=== PATIENT | male | born 1955 | race Caucasian/White ===

== ENCOUNTER 2021-07-23 13:32 | Outpatient (CLI) | payer MEDICARE, OTHER | END 2021-07-23 13:33 | disposition home or self-care (01) | LOC: COV 13:32 | PROVIDERS: ATTEND Internal Medicine Gastroenterology | DX: Z01.812 Encounter for preprocedural laboratory examination (principal); K51.30 Ulcerative (chronic) rectosigmoiditis without complications; Z20.822 Contact with and (suspected) exposure to COVID-19 ==

== ENCOUNTER 2023-02-11 15:27 | Outpatient (CLI) | payer MEDICARE, OTHER | END 2023-02-11 15:28 | disposition home or self-care (01) | LOC: DI 15:27 | PROVIDERS: ATTEND Family Medicine | DX: I48.91 Unspecified atrial fibrillation (principal); I27.20 Pulmonary hypertension, unspecified; I08.0 Rheumatic disorders of both mitral and aortic valves; I87.8 Other specified disorders of veins | CPT/HCPCS: 93306 ==

== ENCOUNTER 2023-11-06 08:30 | Outpatient (CLI) | payer MEDICARE, OTHER ==
--- NOTE | 2023-11-07 10:22 | XRAY Report ---
PROCEDURE: Hand 3 View BILAT INDICATIONS: BILAT HAND PAIN TECHNIQUE: 3 views of the hand(s) acquired. COMPARISON: None. FINDINGS: Right: Old radial styloid fracture. No dislocations. No suspicious bony lesions. Mild osteoarthriti c changes in wrists and hands bilaterally. No suspicious soft tissue calcifications or masses. Left: No fractures or dislocations. No suspicious bony lesions. Mild osteoarthritic changes bilater ally. No suspicious soft tissue calcifications or masses. IMPRESSION: 1. Old right ulnar styloid fracture. 2. Mild osteoarthritis bilaterally. Reviewed by: Julia Collins MD on 11/07/2023 10:20 AM [facility] Approved by: Julia Collins MD on 11/07/2023 10:20 AM [facility] Station ID: [id number]
--- NOTE | 2023-11-07 10:23 | XRAY Report ---
PROCEDURE: Wrist 3 View BILAT INDICATIONS: BILAT WRIST PAIN TECHNIQUE: 3 views of the wrist were acquired. COMPARISON: None. FINDINGS: Bones: There is a corticated ossicle adjacent to the right radial styloid, consistent with an old fr acture. No suspicious bony lesions. Mild osteoarthritic changes in wrists bilaterally, right greater than left. Soft tissues: No suspicious soft tissue calcifications or masses. IMPRESSION: 1. Old radial styloid fracture. 2. Mild osteoarthritic changes bilaterally. Reviewed by: Julia Collins MD on 11/07/2023 10:22 AM [facility] Approved by: Julia Collins MD on 11/07/2023 10:22 AM [facility] Station ID: [id number]
== END 2023-11-06 08:45 | disposition home or self-care (01) ==
LOC: DI.N 08:30
PROVIDERS: ATTEND Nurse Practitioner
DX: M19.031 Primary osteoarthritis, right wrist (principal); M19.032 Primary osteoarthritis, left wrist

== ENCOUNTER 2023-11-13 14:27 | Emergency (ER) | payer MEDICARE, OTHER ==
[2023-11-13 14:51] VITALS: O2SAT 98
--- NOTE | 2023-11-13 18:07 | XRAY Report ---
PROCEDURE: Hand 3 View LT INDICATIONS: Trauma TECHNIQUE: 3 views of the hand(s) acquired. COMPARISON: None. FINDINGS: Bones: No fractures or dislocations. No suspicious bony lesions. No suspicious erosions. Stable rosa m earance of mild degenerative changes of the left hand and wrist. Soft tissues: No suspicious soft tissue calcifications or masses. Moderate diffuse soft tissue swe lling. IMPRESSION: Moderate diffuse left hand soft tissue swelling without underlying fracture or suspicious osseous ero sions. Stable appearance of mild background degenerative changes of the left hand and wrist. Reviewed by: Sylvain Quinn MD on 11/13/2023 6:06 PM PST Approved by: Sylvain Quinn MD on 11/13/2023 6:06 PM PST Station ID: [id number]
[2023-11-13] MEDS ORDERED: cephALEXin 250 MG CAPSULE PO STA (19:17)
--- NOTE | 2023-11-13 19:20 | ED Physician Documentation ---
History of Present Illness - Stated complaint Stated Complaint: LT HAND SWELLING/PX - Chief complaint Chief Complaint: Ext Problem - History obtained from History obtained from: Patient - History of Present Illness Timing: How many weeks ago (1) Pain level max: 4 Pain level now: 1 - Additonal information Additional information: 68-year-old male presents to the emergency department with intermittent swelling of the left hand for the past 1 week. Better with elevation, worse with lying down. He states that he recently moved a lot of chills and is concerned about potential infection. Does not recall any specific trauma. He did start Eliquis last night. No fevers. No chills. Has some pain with movement of the hand. He states that he did have swelling in the right hand in the past but that that went away on its own. Review of Systems Constitutional: denies: Fever, Chills GI: denies: Vomiting, Diarrhea Skin: denies: Rash Musculoskeletal: denies: Neck pain, Back pain Neurologic: denies: Headache PD PAST MEDICAL HISTORY - Past Medical History Past Medical History: Yes Cardiovascular: High cholesterol Neuro: None Endocrine/Autoimmune: Type 2 diabetes HEENT: None - Past Surgical History Past Surgical History: No - Present Medications Home Medications: Ambulatory Orders Medication Instructions Recorded Confirmed cephALEXin [Keflex] 500 mg PO Q6H #28 cap 11/13/23 - Allergies Allergies/Adverse Reactions: Allergies Allergy/AdvReac Type Severity Reaction Status Date / Time No Known Drug Allergies Allergy Verified 11/13/23 14:45 - Social History Does the pt smoke?: No Smoking Status: Never smoker Does the pt drink ETOH?: No Does the pt have substance abuse?: No - Immunizations Immunizations are current?: Yes PD ED PE NORMAL - Vitals Vital signs reviewed: Yes - General General: Alert and oriented X 3, No acute distress - HEENT HEENT: Moist mucous membranes - Derm Derm: Warm and dry - Extremities Extremities: Other (There is mild swelling to the dorsum of the left hand. Minimal erythema. No palmar tenderness. No pain with movement of the fingers. No wrist pain. No streaking. No abscess. NVI) - Neuro Neuro: Alert and oriented X 3 - Psych Psych: Normal mood, Normal affect Results - Vitals Vitals: Vital Signs - 24 hr 11/13/23 11/13/23 14:45 19:39 Temperature 36.8 C 36.9 C Heart Rate 85 109 H Respiratory 16 16 Rate Blood Pressure 133/84 H 122/96 H O2 Saturation 98 98 Oxygen O2 Source Room air Procedures - Splint (location) - Minor L hand Splint applied by: PhysicianWhitney Type of splint: Fiberglass, Short arm, Volar cock up Other: Patient tolerated well, No complications, Neurovascular intact PD Medical Decision Making - ED course Complexity details: considered differential, d/w patient, d/w family ED course: 68-year-old male with likely slight trauma to the dorsum of the hand causing soft tissue swelling that resolves with elevation. He was placed in a volar splint for comfort. Recommend that he wear this for the next few days to help limit motion of the hand and fingers. There is some mild erythema, therefore we will cover with Keflex in case it is an early infection. No evidence of deep space infection in the hand. No significant tenderness along the tendons of the fingers or hand. No drainage. No lymphangitis. The remainder of the arm exam is normal. Patient and family counseled regarding signs and symptoms for which I believe and urgent re-evaluation would be necessary. Patient with good understanding of and agreement to plan and is comfortable going home at this time This document was made in part using voice recognition software. While efforts are made to proofread this document, sound alike and grammatical errors may occur. Departure - Departure Disposition: 01 Home, Self Care Clinical Impression: Swelling of left hand Condition: Good Instructions: ED Contusion Hand Follow-Up: RAMU LAZCANO, [Primary Care Provider] - Within 1 week Prescriptions: cephALEXin [Keflex] 500 mg PO Q6H #28 cap Comments: Your prescription was to [facility] in [place]. Please take all antibiotics until gone. I suspect that this is more of a traumatic swelling in your hand and should improve with the splinting and compression. Elevate the hand whenever possible. You can wear the splint for the next 3 to 4 days. If you need to rewrap the splint, start in your your fingers and wrap up towards your elbow. Please return if you worsen. Your x-ray does not show any acute abnormalities today. Forms: PCP List Discharge Date/Time: 11/13/23 19:41
[2023-11-13 19:43] VITALS: BP 122/96
== END 2023-11-13 19:41 | disposition home or self-care (01) ==
LOC: ED 14:27
DX: L03.114 Cellulitis of left upper limb (principal); E11.9 Type 2 diabetes mellitus without complications
CPT/HCPCS: 29125; 73130; 99282; 99283; A9270